=== PATIENT | female | born 1975 | race Caucasian/White ===

== ENCOUNTER 2024-08-27 12:04 | Emergency (ER) | payer MEDICAID ==
[~2024-08-27] VITALS: Ht 167.6 cm; Wt 59.1 kg
[2024-08-27 12:18] VITALS: TEMP 98.6
[2024-08-27 14:07] LABS: BASOPHILS % (AUTO) 0.3 % (0-1); EOSINOPHILS % (AUTO) 0.3 % (0-6); HEMATOCRIT 41.5 % (35.0-45.0); HEMOGLOBIN 13.9 g/dl (12.0-16.0); LYMPHOCYTES # (AUTO) 1.1 X10'3 (1.1-4.8); LYMPHOCYTES % (AUTO) 9.3 % (21-51); MEAN CORPUSCULAR HEMOGLOBIN 30.5 PG (27.0-31.0); MEAN CORPUSCULAR HGB CONC 33.4 g/dL (33.0-36.5); MEAN CORPUSCULAR VOLUME 91.4 FL (78-98); MEAN PLATELET VOLUME 7.7 FL (7.4-10.4); MONOCYTES # (AUTO) 0.4 X10'3 (0-0.9); MONOCYTES % (AUTO) 3.2 % (2-12); NEUTROPHILS # (AUTO) 10.5 X10'3 (1.8-7.7); NEUTROPHILS % (AUTO) 86.9 % (42-75); PLATELET COUNT 274 X10'3 (140-440); RED BLOOD COUNT 4.54 X10'6 (4.20-5.60); RED CELL DISTRIBUTION WIDTH 13.3 % (11.5-14.5); WHITE BLOOD COUNT 12.1 X10'3 (4.5-11.0)
[2024-08-27 14:21] LABS: ALANINE AMINOTRANSFERASE 19 U/L (12-78); ALKALINE PHOSPHATASE 50 IU/L (46-116); ANION GAP 8 (8-16); ASPARTATE AMINO TRANSFERASE 19 U/L (10-37); BILIRUBIN,TOTAL 0.4 MG/DL (0.1-1.0); BLOOD UREA NITROGEN 17 MG/DL (7-18); BUN/CREATININE RATIO 15.7 (10.0-20.0); CALCIUM 9.1 MG/DL (8.5-10.1); CHLORIDE 105 MMOL/L (99-107); CREATININE 1.08 MG/DL (0.40-0.90); GLUCOSE 114 MG/DL (70-104); LIPASE 29 U/L (16-77); SODIUM 143 MMOL/L (135-145); TOTAL CARBON DIOXIDE 29.9 MMOL/L (24-32); TOTAL PROTEIN 7.9 G/DL (6.4-8.2); eCRCL 58 ML/MIN; eGFR 54 ML/MIN
[2024-08-27] MEDS: ketorolac trometh 15mg/ml vial 15 MG/ML ML IV ONE (14:46)
[2024-08-27] MEDS: ondansetron/PF 4mg/2ml inj IV ONE (14:46)
[2024-08-27] MEDS: normal saline 1000ml 1,000 ML IV ONE (14:47)
[2024-08-27 15:07] LABS: BILIRUBIN,URINE NEGATIVE (Neg); CLARITY,URINE SLIGHTLY CLOUDY (Clear); COLOR,URINE YELLOW (Yellow); GLUCOSE, URINE NEGATIVE (Neg); KETONES,URINE NEGATIVE (Neg); LEUKOCYTE ESTERASE ,URINE NEGATIVE (Neg); NITRITES, URINE NEGATIVE (Neg); OCCULT BLOOD,URINE SMALL (Neg); PROTEIN,URINE NEGATIVE (Neg); UROBILINOGEN,URINE 0.2 E.U/dL (0.2-1.0)
[2024-08-27 15:09] LABS: URINE HCG NEGATIVE (NEG)
[2024-08-27 15:16] LABS: UA COLLECTION TYPE CLN CATCH MIDSTREAM
[2024-08-27 15:17] LABS: SQUAMOUS EPITHELIAL CELL,UR MANY /LPF (FEW)
[2024-08-27 15:18] LABS: BACTERIA,URINE 3+ /HPF (Neg); RBC,URINE 20-50 /HPF (0-2); WBC,URINE TNTC /HPF (0-4)
[2024-08-27 15:27] VITALS: BP 112/68; PULSE 63; O2SAT 99
[2024-08-27 15:56] VITALS: RESP 18
[2024-08-27] MEDS ORDERED: HYDR-3965 PO (16:08)
[2024-08-27] MEDS ORDERED: ONDA-245 PO (16:08)
== END 2024-08-27 16:09 | disposition home or self-care (01) ==
LOC: ER 12:04
DX: N20.0 Calculus of kidney (principal)
CPT/HCPCS: 36415; 74176; 80053; 81001; 81025; 83690; 85025; 96361; 96374; 96375; 99285; J1885; J2405; J7030